=== PATIENT | male | born 1990 | race Caucasian/White ===

== ENCOUNTER 2018-09-29 23:16 | Emergency (ER) | payer OTHER ==
[~2018-09-29] VITALS: Ht 180.3 cm; Wt 75.0 kg
[2018-09-29 23:16] VITALS: BP 127/73
[2018-09-29] MEDS ORDERED: FLUORESCEIN OPHTH 1 MG STRIP OS ONE (23:30)
[2018-09-29] MEDS ORDERED: TETRACAINE 0.5% OPHTH SOLN 4ML OS ONE (23:30)
[2018-09-29] MEDS ORDERED: ERYTHROMYCIN OPHTH OINT OD ONE (23:45)
== END 2018-09-30 00:05 | disposition home or self-care (01) ==
LOC: M ED 23:16
DX: S05.01XA Injury of conjunctiva and corneal abrasion without foreign body, right eye, initial encounter (principal); X58.XXXA Exposure to other specified factors, initial encounter; Y92.098 Other place in other non-institutional residence as the place of occurrence of the external cause

== ENCOUNTER 2018-11-28 07:41 | Emergency (ER) | payer OTHER ==
[~2018-11-28] VITALS: Ht 185.4 cm; Wt 79.5 kg
[2018-11-28 07:42] VITALS: BP 141/86
[2018-11-28] MEDS ORDERED: TETRACAINE 0.5% OPHTH SOLN 4ML OD ONE (08:00)
[2018-11-28] MEDS ORDERED: FLUORESCEIN OPHTH 1 MG STRIP OD ONE (08:00)
== END 2018-11-28 08:41 | disposition home or self-care (01) ==
LOC: M ED 07:41
DX: S05.91XA Unspecified injury of right eye and orbit, initial encounter (principal); H53.9 Unspecified visual disturbance; W50.0XXA Accidental hit or strike by another person, initial encounter; Y92.89 Other specified places as the place of occurrence of the external cause

== ENCOUNTER 2020-11-07 14:52 | Emergency (ER) | payer OTHER ==
[~2020-11-07] VITALS: Ht 185.4 cm; Wt 90.9 kg
--- NOTE | 2020-11-07 15:21 | REP ---
INDICATION: PAIN. COMPARISON: None. TECHNIQUE: Four views FINDINGS: The joint spaces are symmetric and relatively well maintained. There is no evidence of acute fracture or destructive osseous lesion. IMPRESSION: Negative. <Electronically signed by Abimael Burden > 11/07/20 [id number]
[2020-11-07] MEDS ORDERED: IBUPROFEN 800 MG TAB PO ONE (17:00)
[2020-11-07] MEDS ORDERED: IBUP-1022 PO (17:10)
[2020-11-07] MEDS ORDERED: ACET-683 PO (17:10)
[2020-11-07 17:32] VITALS: BP 131/64
== END 2020-11-07 17:34 | disposition home or self-care (01) ==
LOC: M ED 14:52
DX: S90.32XA Contusion of left foot, initial encounter (principal); S90.812A Abrasion, left foot, initial encounter; W50.0XXA Accidental hit or strike by another person, initial encounter; Y92.89 Other specified places as the place of occurrence of the external cause; Y93.75 Activity, martial arts